=== PATIENT | female | born 1960 | race Caucasian/White ===

== ENCOUNTER 2017-01-25 14:06 | Outpatient (CLI) | payer OTHER ==
--- NOTE | 2017-01-26 13:13 | HISTORY AND PHYSICAL REPORT ---
REFERRING PHYSICIAN: Dr. Chalino Jain Dear Dr. Jain: HISTORY OF PRESENT ILLNESS: I had the opportunity of seeing Geena Khalil today as an outpatient at [facility]. As you are aware, Ms. Khalil is an unfortunate 56- year-old white female who has a history of coronary artery disease and presents to me with right-sided groin and medial thigh pain, which is fairly severe. Her history is significant in that she a cardiac ischemic event in January of 2016 and underwent cardiac angiography and catheterization stenting. She had a complication when the stent site became infected and subsequently needed incision and debriding and closure. Since that time, she has had right groin pain radiating into the medial thigh and she was treated on morphine, which apparently had somewhat improved her condition. At some point, the morphine was then stopped and she was changed to Oxycodone 5 mg every 6 hours and this has not been effective at controlling her pain symptoms. She is also on gabapentin and really, during the course of the interview and exam, she is uncooperative and belligerent with my staff. She denies pain on the left side. She says that these symptoms began after her graft infection and subsequent incision and debridement and closure. She is trying to obtain disability status and she is filing for disability at this time. She currently resides at [facility]. She says the pain is excruciating and it is usually a 7 over 10 on a visual analog scale and never better than a 6 over 10 on a visual analog scale and it is worse with any activity. She also takes Neurontin 200 mg 3 to 4 times a day. When I asked her about the gabapentin and she really would not answer as to whether or not she knew she was taking it or that it was giving her any benefit. For the most part, she was interested in pain medication most specifically. PAST MEDICAL HISTORY: 1. History of a myocardial infarction (CT). 2. Hypertension. 3. Jaundice. 4. Autoimmune hepatitis. 5. Depression. 6. Anxiety. 7. Frequent headaches. PAST SURGICAL HISTORY: 1. Cardiac stenting. 2. Left lumpectomy. 3. Right ankle surgery. 4. Grafting from her left femoral artery to her right. CURRENT DAILY MEDICATIONS: 1. Buspirone 10 mg 3 times a day. 2. Lisinopril 5 mg daily. 3. Potassium chloride 10 mEq daily. 4. Metoprolol 25 mg b.i.d. 5. Lactate 1 capsule t.i.d. 6. Gabapentin 200 mg t.i.d. 7. Ursodiol 300 mg t.i.d. 8. Seroquel 100 mg at bedtime. 9. Cymbalta 30 mg b.i.d. 10. Atorvastatin 20 mg at bedtime. 11. Plavix 75 mg at bedtime. 12. Flexeril 10 mg b.i.d. 13. Pepto-Bismol p.r.n. 14. Zofran p.r.n. 15. Hydrocortisone p.r.n. 16. Ibuprofen 600 mg every 8 hours. 17. Oxycodone 5 mg every 6 hours. ALLERGIES: 1. Tetracycline. 2. Naproxen Unknown reactions. SOCIAL HISTORY: She is a former 2-[id number]-[id number]-day smoker for 20 years. She is recovering alcoholic. She denies recreational drugs. She is . She has 2 children. She currently lives in a long-term care facility. She completed the 12th grade. She is not currently employed. Her occupation was a cashier host/hostess and care provider. She is disabled for an unknown reason. FAMILY HISTORY: Mother with cancer and thyroid disease. REVIEW OF SYSTEMS: In the past month or so, she reports a weight loss, irregular fast heartbeats, diarrhea, feeling depressed, feeling anxious, headaches. Pain is worse with lying down, standing, bending, sitting, walking, twisting, getting up from a chair, changes in weather, stress, fatigue, getting up in the morning or in any position for too long. Pain is improved when taking high doses of opiate medications. PHYSICAL EXAMINATION: Vital Signs were not obtained. General: The patient is awake, alert, and oriented and somewhat argumentative. On direct physical examination, she has evidence of a previous right-sided incision and drainage and closure. She has a reproducible Tinel's sign over the genitofemoral nerve root distribution. ASSESSMENT: 1. Genitofemoral neuralgia, status post incision and drainage for an infected cardiac catheterization site. 2. Opioid tolerance. 3. Neuropathic pain. PLAN: At this point, I have explained to Ms. Khalil that I think she has a chronic pain condition and would be appropriate for chronic opioid treatment and to this extent, I would recommend starting on 50 mg of Embeda starting at every 24 hours and then potentially going to every 12 hours. Furthermore, if she is not interested in any further treatment options and is uncooperative with me and belligerent with my staff, that I would not accept her as a patient; and that I would treat it with a genitofemoral nerve block and potentially a dorsal root ganglion stimulator which would treat the specific dermatome for her nerve root pain. I will give her information today to that extent. I think this patient will likely need a chronic long-acting opiate. It is unfortunate that she is not more receptive to medical care. I will not see this patient again in clinic. Dr. Jain, I do appreciate the opportunity to take part in the care of your patients and I am certainly available to you if have anyone with acute or chronic injury or pain conditions. cc: [facility] ADDENDUM: As Geena Khalil is filing for disability, I think she could use a functional capacity assessment from a skilled physical therapist for her disability filing. [email or web address]
== END 2017-01-25 14:08 ==
LOC: OUT 14:06
PROVIDERS: ATTEND Anesthesiology Pain Medicine
DX: G58.8 Other specified mononeuropathies (principal); G62.89 Other specified polyneuropathies; Z79.891 Long term (current) use of opiate analgesic
CPT/HCPCS: 99203; 99204